=== PATIENT | male | born 1975 | race Caucasian/White ===

== ENCOUNTER 2017-02-01 20:11 | Inpatient (IN) | payer MEDICAID ==
[~2017-02-01] VITALS: Ht 175.3 cm; Wt 72.6 kg
[2017-02-01 21:17] LABS: HEMOGLOBIN 13.9 gm/dl (14.0-17.5); RED BLOOD COUNT 4.22 M/UL (4.20-5.50); WHITE BLOOD COUNT 18.6 K/UL (4.5-11.0)
[2017-02-01 21:41] LABS: BUN/CREATININE RATIO 20 (0-10)
[2017-02-02] MEDS ORDERED: CELEXA40 MG PO (10:38)
[2017-02-02] MEDS ORDERED: PRILOSEC OTC20 MG PO (10:39)
[2017-02-02] MEDS ORDERED: IBUPROFEN800 MG PO (10:39)
[2017-02-02 18:04] LABS: HEMOGLOBIN 12.5 gm/dl (14.0-17.5); RED BLOOD COUNT 3.85 M/UL (4.20-5.50)
[2017-02-02 18:05] LABS: WHITE BLOOD COUNT 8.6 K/UL (4.5-11.0)
[2017-02-02 18:25] LABS: BUN/CREATININE RATIO 13 (0-10)
[2017-02-03 04:04] LABS: HEMOGLOBIN 12.2 gm/dl (14.0-17.5); RED BLOOD COUNT 3.79 M/UL (4.20-5.50); WHITE BLOOD COUNT 7.6 K/UL (4.5-11.0)
[2017-02-03 04:23] LABS: BUN/CREATININE RATIO 10 (0-10)
[2017-02-04 05:24] LABS: HEMOGLOBIN 13.3 gm/dl (14.0-17.5); RED BLOOD COUNT 4.13 M/UL (4.20-5.50)
[2017-02-04 05:42] LABS: BUN/CREATININE RATIO 8 (0-10)
== END 2017-02-04 11:20 | disposition home or self-care (01) | DRG 922 ==
LOC: ER1 20:11 → ZEROF 02-02 04:15 → MED SURG 4 02-02 16:00
PROVIDERS: Emergency Medicine; Internal Medicine Infectious Disease; ADMIT Internal Medicine
DX: T76.11XA Adult physical abuse, suspected, initial encounter (principal); G92 Toxic encephalopathy; T14.8XXA Other injury of unspecified body region, initial encounter; T79.6XXA Traumatic ischemia of muscle, initial encounter; F15.929 Other stimulant use, unspecified with intoxication, unspecified; S01.01XA Laceration without foreign body of scalp, initial encounter; Y04.0XXA Assault by unarmed brawl or fight, initial encounter; Y92.410 Unspecified street and highway as the place of occurrence of the external cause; Z86.19 Personal history of other infectious and parasitic diseases; R52 Pain, unspecified
CPT/HCPCS: 12001; 36415; 70450; 71010; 71260; 72070; 72100; 72125; 73130; 73590; 80048; 80053; 80307; 81001; 82550; 82553; 83874; 84484; 85025; 85027; 96361; 96365; 99285; G0480; J0690; J3480; J7030; J7050; Q9962